=== PATIENT | female | born 1950 | race Caucasian/White ===

== ENCOUNTER 2021-04-12 08:03 | Day surgery (SDC) | payer OTHER ==
[2021-04-05 16:22] LABS: BASOPHILS # (AUTO) 0.1 X10'3 (0-0.2); BASOPHILS % (AUTO) 0.8 % (0-1); EOSINOPHILS # (AUTO) 0.2 X10'3 (0-0.9); EOSINOPHILS % (AUTO) 3.2 % (0-6); LYMPHOCYTES # (AUTO) 1.7 X10'3 (1.1-4.8); LYMPHOCYTES % (AUTO) 25.2 % (21-51); MEAN CORPUSCULAR HEMOGLOBIN 29.5 PG (27.0-31.0); MEAN CORPUSCULAR HGB CONC 33.8 g/dL (33.0-36.5); MEAN CORPUSCULAR VOLUME 87.3 FL (78-98); MEAN PLATELET VOLUME 7.7 FL (7.4-10.4); MONOCYTES # (AUTO) 0.4 X10'3 (0-0.9); MONOCYTES % (AUTO) 5.5 % (2-12); NEUTROPHILS # (AUTO) 4.5 X10'3 (1.8-7.7); NEUTROPHILS % (AUTO) 65.3 % (42-75); PRE OP HEMATOCRIT 38.7 % (35.0-45.0); PRE OP HEMOGLOBIN 13.1 g/dL (12.0-16.0); PRE OP PLATELET COUNT 223 X10'3 (140-440); RED BLOOD COUNT 4.43 X10'6 (4.20-5.60); RED CELL DISTRIBUTION WIDTH 13.6 % (11.5-14.5)
[2021-04-05 16:34] LABS: ALBUMIN 3.8 G/DL (3.4-5.0); ALKALINE PHOSPHATASE 116 IU/L (46-116); BLOOD UREA NITROGEN 19 MG/DL (7-18); BUN/CREATININE RATIO 19.2 (6.6-38.0); CALCIUM 8.6 MG/DL (8.5-10.1); CHLORIDE 105 MMOL/L (99-107); CREATININE 0.99 MG/DL (0.40-0.90); PRE OP ALT 21 U/L (30-65); PRE OP ANION GAP 10 (8-16); PRE OP AST 15 U/L (10-37); PRE OP BILIRUB, TOTAL 0.5 MG/DL (0.0-1.0); PRE OP GLUCOSE 115 MG/DL (70-104); PRE OP POTASSIUM 4.1 MMOL/L (3.4-5.1); PRE OP SODIUM 143 MMOL/L (135-145); TOTAL CARBON DIOXIDE 27.9 MMOL/L (24-32); TOTAL PROTEIN 7.5 G/DL (6.4-8.2); eGFR 56 ML/MIN
[~2021-04-12] VITALS: Ht 162.6 cm; Wt 120.1 kg
[~2021-04-12 08:03] MED LIST: ALBU8.5H17 INH; ATOR40TA PO; BUDE10.7 INH; BUPIVAcaine/PF 2.5 mg/ml (0.25%) 30ml vial ONE; CLINDAMYCIN/D5W 900mg/50ml 50 ML IV ONE; DICL20GE TOP; DULO-31 PO; LEVO150T8 PO; LIDOcaine 1% 30ml preserv. free vial ONE; OXYC10TA57 PO; PANT-47 PO; TIZA4TAB11 PO; albuterol 2.5 MG/3 ML nebule NEB ONE; famotidine 20mg tablet PO ONE; ringers solution, lacted 1,000 ML IV SCH
[2021-04-12 09:00] VITALS: BP 121/86
[2021-04-12] MEDS ORDERED: MIDAZolam 1 MG/ML 5ML VIAL ONE (10:53)
[2021-04-12] MEDS ORDERED: fentaNYL/PF 50MCG/1 ML 2ML syringe ONE (10:53)
[2021-04-12] MEDS ORDERED: ketorolac trometh. 30mg/ml inj. ONE (11:38)
[2021-04-12 11:46] VITALS: BP 124/83
--- NOTE | 2021-04-12 11:46 | NUR ---
Received from OR via , accompanied by Anesthesiologist DR PATTERSON and report given by Anesthesiolgist. AWAKENS TO VOICE. VITALS STABLE. SPLINT DI. MICHELLE PAIN. FINGERS WARM AND PINK.
[2021-04-12 11:56] VITALS: BP 128/82
[2021-04-12 12:06] VITALS: BP 126/83
[2021-04-12 12:16] VITALS: BP 130/80
--- NOTE | 2021-04-12 12:36 | NUR ---
AWAKE AND ORIENTED. VITALS STABLE. SPLINT DI. MICHELLE PAIN. HOME WITH HER SON AT THIS TIME.
== END 2021-04-12 12:36 | disposition home or self-care (01) ==
LOC: PAS 08:03
PROVIDERS: ATTEND Orthopaedic Surgery Hand Surgery
DX: T85.848A Pain due to other internal prosthetic devices, implants and grafts, initial encounter (principal); M18.12 Unilateral primary osteoarthritis of first carpometacarpal joint, left hand; M19.012 Primary osteoarthritis, left shoulder; M19.011 Primary osteoarthritis, right shoulder; M17.0 Bilateral primary osteoarthritis of knee; J45.909 Unspecified asthma, uncomplicated; G89.29 Other chronic pain; E78.5 Hyperlipidemia, unspecified; K21.9 Gastro-esophageal reflux disease without esophagitis; F41.9 Anxiety disorder, unspecified; F32.9 Major depressive disorder, single episode, unspecified; E05.00 Thyrotoxicosis with diffuse goiter without thyrotoxic crisis or storm; E66.9 Obesity, unspecified; Z68.42 Body mass index [BMI] 45.0-49.9, adult; Z98.890 Other specified postprocedural states; Z88.5 Allergy status to narcotic agent; Z88.0 Allergy status to penicillin; Z90.49 Acquired absence of other specified parts of digestive tract; Z87.891 Personal history of nicotine dependence; Z20.822 Contact with and (suspected) exposure to COVID-19; Z86.718 Personal history of other venous thrombosis and embolism; Z79.899 Other long term (current) drug therapy; Y83.8 Other surgical procedures as the cause of abnormal reaction of the patient, or of later complication, without mention of misadventure at the time of the procedure; Y92.89 Other specified places as the place of occurrence of the external cause
CPT/HCPCS: 25445; 26320; 36415; 80053; 82948; 85025; 93005; C1762; J1885; J2001; J2250; J3010; J3490; J7120; U0003; U0005; Z7506; Z7508; Z7512; A4215; A4618; A7000

== ENCOUNTER 2022-06-19 18:10 | Inpatient (IN) | payer BC, MEDICARE ==
[~2022-06-19] VITALS: Ht 162.6 cm; Wt 110.4 kg
[~2022-06-19 18:10] MED LIST changes: -BUPIVAcaine/PF 2.5 mg/ml (0.25%) 30ml vial ONE; -CLINDAMYCIN/D5W 900mg/50ml 50 ML IV ONE; -LIDOcaine 1% 30ml preserv. free vial ONE; -albuterol 2.5 MG/3 ML nebule NEB ONE; -famotidine 20mg tablet PO ONE; -ringers solution, lacted 1,000 ML IV SCH
[2022-06-19 18:30] LABS: BASOPHILS # (AUTO) 0.1 X10'3 (0-0.2); BASOPHILS % (AUTO) 0.3 % (0-1); EOSINOPHILS % (AUTO) 0 % (0-6); HEMATOCRIT 37.3 % (35.0-45.0); HEMOGLOBIN 12.4 g/dl (12.0-16.0); LYMPHOCYTES # (AUTO) 1.3 X10'3 (1.1-4.8); MEAN CORPUSCULAR HEMOGLOBIN 28.2 PG (27.0-31.0); MEAN CORPUSCULAR HGB CONC 33.1 g/dL (33.0-36.5); MEAN PLATELET VOLUME 8.4 FL (7.4-10.4); MONOCYTES # (AUTO) 1.6 X10'3 (0-0.9); MONOCYTES % (AUTO) 7.3 % (2-12); NEUTROPHILS # (AUTO) 18.4 X10'3 (1.8-7.7); NEUTROPHILS % (AUTO) 86.4 % (42-75); PLATELET COUNT 424 X10'3 (140-440); WHITE BLOOD COUNT 21.4 X10'3 (4.5-11.0)
[2022-06-19 18:59] LABS: ALANINE AMINOTRANSFERASE 30 U/L (12-78); ALBUMIN 2.6 G/DL (3.4-5.0); ALBUMIN/GLOBULIN RATIO 0.5 (1.1-1.5); ALKALINE PHOSPHATASE 103 IU/L (46-116); ANION GAP 13 (8-16); ASPARTATE AMINO TRANSFERASE 56 U/L (10-37); BILIRUBIN,TOTAL 0.6 MG/DL (0.1-1.0); BLOOD UREA NITROGEN 18 MG/DL (7-18); BUN/CREATININE RATIO 13.2 (6.6-38.0); CHLORIDE 92 MMOL/L (99-107); CREATININE 1.36 MG/DL (0.40-0.90); GLUCOSE 138 MG/DL (70-104); MAGNESIUM 1.6 MG/DL (1.5-2.4); POTASSIUM 3.3 MMOL/L (3.5-5.1); SODIUM 132 MMOL/L (135-145); TOTAL CARBON DIOXIDE 27.3 MMOL/L (24-32); eGFR 38 ML/MIN
[2022-06-19] MEDS ORDERED: SULF1TAB48 PO (20:31)
[2022-06-19] MEDS ORDERED: diltiazem 5mg/ml 5ml inj. IV ONE ×2 (20:50→21:05)
[2022-06-19] MEDS ORDERED: temazepam 15mg capsule PO PRN (21:00)
[2022-06-19] MEDS ORDERED: ondansetron/PF 4mg/2ml inj IV ONE (21:15)
[2022-06-19] MEDS ORDERED: CefTRIAXone/D5W-Rocephin 1gm 50 ML IV ONE (21:35)
[2022-06-19] MEDS ORDERED: vancomycin/NS 1 GM ADD-VANTAGE 250 ML IV ONE (21:35)
[2022-06-19] MEDS ORDERED: azithromycin/NS 500mg/250ml 250 ML IV ONE (22:20)
[2022-06-19] MEDS ORDERED: bisacodyl 10mg suppository rectal RC PRN (22:55)
[2022-06-19] MEDS ORDERED: acetaminophen 650mg rectal suppository RC PRN (22:55)
[2022-06-19] MEDS ORDERED: diphenhydrAMINE 25mg capsule PO PRN (22:55)
[2022-06-19] MEDS ORDERED: acetaminophen 325mg tablet PO PRN ×2 (22:55)
[2022-06-19] MEDS ORDERED: diphenhydrAMINE 50 mg/ml inj IV PRN (22:55)
[2022-06-19] MEDS ORDERED: ondansetron/PF 4mg/2ml inj IV PRN (22:55)
[2022-06-19] MEDS ORDERED: mag hydrox/Alum hydrox/simeth 30ml oral suspension PO PRN (22:55)
[2022-06-19 22:59] LABS: CLARITY,URINE CLOUDY (Clear); COLOR,URINE AMBER (Yellow); GLUCOSE, URINE 100 mg/dl (Neg); KETONES,URINE 15 mg/dl (Neg); LEUKOCYTE ESTERASE ,URINE NEGATIVE (Neg); OCCULT BLOOD,URINE TRACE-INTACT (Neg); PROTEIN,URINE 100 mg/dl (Neg)
[2022-06-19 23:01] LABS: UA COLLECTION TYPE CLN CATCH MIDSTREAM
[2022-06-19 23:02] LABS: NITRITES, URINE NEGATIVE (Neg)
[2022-06-19] MEDS: diltiazem-NS 100mg/100ml 100 ML IV SCH (23:02)
[2022-06-19] MEDS: normal saline 1000ml 1,000 ML IV SCH (23:02)
[2022-06-19 23:09] LABS: BACTERIA,URINE 2+ /HPF (Neg); MUCUS STRANDS FEW /LPF (Neg); SQUAMOUS EPITHELIAL CELL,UR MODERATE /LPF (FEW); TRANSITIONAL EPI CELLS,URINE FEW /HPF
[2022-06-19 23:10] LABS: COARSE GRANULAR CAST 0-3 /LPF (NEGATIVE)
[2022-06-19] MEDS ORDERED: magnesium Cl slow-release 64mg tablet PO PRN (23:10)
[2022-06-19] MEDS ORDERED: potassium Cl 20 mEq SR tablet PO PRN (23:10)
[2022-06-19] MEDS ORDERED: potassium Cl 40MEQ/1/2NS 520ml 520 ML IV PRN (23:10)
[2022-06-19] MEDS ORDERED: magnesium 4gm in 100ml NS 100 ML IV PRN (23:10)
[2022-06-19 23:26] LABS: MAGNESIUM 1.7 MG/DL (1.5-2.4); PHOSPHORUS 2.8 MG/DL (2.3-4.5)
[2022-06-19 23:28] LABS: HEMOGLOBIN A1C 5.7 % (4.5-6.2)
[2022-06-20 00:12] LABS: D-DIMER 1.02 MG/L FEU (0-0.50)
[2022-06-20 00:24] LABS: APTT 35 SECONDS (22-32)
[2022-06-20] MEDS: heparin, porcine 5000 units/ml vial SQ SCH ×3 (01:05→18:21)
[2022-06-20] MEDS: oxyCODONE/APAP 5-325mg tablet PO PRN ×2 (01:05→05:47)
[2022-06-20] MEDS: diltiazem-NS 100mg/100ml 100 ML IV SCH ×2 (06:00→16:26)
--- NOTE | 2022-06-20 07:00 | NUR ---
Patient in room ED 11. I have received report from Sukhwinder MASON and had the opportunity to ask questions and assume patient care.
[2022-06-20 07:55] LABS: BASOPHILS # (AUTO) 0.1 X10'3 (0-0.2); BASOPHILS % (AUTO) 0.3 % (0-1); EOSINOPHILS % (AUTO) 0.1 % (0-6); HEMATOCRIT 32.4 % (35.0-45.0); HEMOGLOBIN 10.5 g/dl (12.0-16.0); LYMPHOCYTES # (AUTO) 1.3 X10'3 (1.1-4.8); LYMPHOCYTES % (AUTO) 7.2 % (21-51); MEAN CORPUSCULAR HEMOGLOBIN 27.9 PG (27.0-31.0); MEAN CORPUSCULAR HGB CONC 32.5 g/dL (33.0-36.5); MEAN CORPUSCULAR VOLUME 85.9 FL (78-98); MEAN PLATELET VOLUME 8.9 FL (7.4-10.4); MONOCYTES # (AUTO) 1.4 X10'3 (0-0.9); MONOCYTES % (AUTO) 7.5 % (2-12); NEUTROPHILS # (AUTO) 15.6 X10'3 (1.8-7.7); NEUTROPHILS % (AUTO) 84.9 % (42-75); PLATELET COUNT 335 X10'3 (140-440); RED BLOOD COUNT 3.77 X10'6 (4.20-5.60); WHITE BLOOD COUNT 18.4 X10'3 (4.5-11.0)
[2022-06-20 08:00] VITALS: BP 113/40
[2022-06-20] MEDS: K and/or MAG REPLACEMENT MC SCH ×2 (08:00→20:00)
[2022-06-20] MEDS ORDERED: levoFLOXACIN-Levaquin 750MG/D5 150 ML IV SCH (08:00)
--- NOTE | 2022-06-20 08:04 | NUR ---
Paged echo do perform procedure for the patient.
[2022-06-20 08:53] LABS: ALANINE AMINOTRANSFERASE 25 U/L (12-78); ALBUMIN 2.2 G/DL (3.4-5.0); ALBUMIN/GLOBULIN RATIO 0.5 (1.1-1.5); ALKALINE PHOSPHATASE 99 IU/L (46-116); ANION GAP 10 (8-16); ASPARTATE AMINO TRANSFERASE 54 U/L (10-37); BILIRUBIN,TOTAL 0.6 MG/DL (0.1-1.0); BLOOD UREA NITROGEN 24 MG/DL (7-18); BUN/CREATININE RATIO 14.3 (6.6-38.0); CALCIUM 7.9 MG/DL (8.5-10.1); CHLORIDE 94 MMOL/L (99-107); CHOL/HDL RATIO 6.4 (0.00-4.99); CHOLESTEROL 77 MG/DL (0-200); CREATININE 1.68 MG/DL (0.40-0.90); GLUCOSE 108 MG/DL (70-104); HDL CHOLESTEROL 12 MG/DL (35-60); LDL CHOLESTEROL 36 MG/DL (50-100); MAGNESIUM 1.7 MG/DL (1.5-2.4); POTASSIUM 3.3 MMOL/L (3.5-5.1); SODIUM 132 MMOL/L (135-145); TOTAL CARBON DIOXIDE 28.2 MMOL/L (24-32); TOTAL PROTEIN 6.9 G/DL (6.4-8.2); TRIGLYCERIDES 86 MG/DL (20-135); eGFR 30 ML/MIN
[2022-06-20] MEDS: docusate sod 100mg capsule PO SCH ×2 (09:26→20:00)
[2022-06-20] MEDS: pantoprazole 40mg Tablet.DR PO SCH (09:26)
[2022-06-20] MEDS: normal saline 1000ml 1,000 ML IV SCH ×2 (09:28→21:58)
[2022-06-20 11:15] VITALS: BP 104/44
[2022-06-20] MEDS: potassium Cl 20 mEq SR tablet PO PRN ×3 (12:27→22:01)
[2022-06-20] MEDS ORDERED: OXYC1TAB15 PO (14:37)
[2022-06-20] MEDS ORDERED: DICL100G30 TOP (14:37)
[2022-06-20] MEDS ORDERED: PANT40TA54 PO (14:37)
[2022-06-20] MEDS ORDERED: ATOR10TA70 PO (14:37)
[2022-06-20] MEDS ORDERED: PREG150C46 PO (14:37)
[2022-06-20] MEDS ORDERED: DULO60CA65 PO (14:37)
[2022-06-20] MEDS ORDERED: LEVO150T61 PO (14:37)
[2022-06-20] MEDS ORDERED: TIZA2CAP7 PO (14:39)
--- NOTE | 2022-06-20 15:54 | NUR ---
Ana Cristina [id number], Pt is having generalized pain she rates at a 7/10. She has no pain meds in the EMar. Is there a med you would like ordered for her? Bernard [phone]
[2022-06-20 16:01] VITALS: BP 98/51
--- NOTE | 2022-06-20 16:01 | NUR ---
PAGER ID: [phone] MESSAGE: Ana Cristina [id number], Pt is having generalized pain she rates at a 7/10. She has no pain meds in the EMar. Is there a med you would like ordered for her? Sorry if repeat message, not sure if it was sent correctly. Bernard [phone]
[2022-06-20] MEDS ORDERED: pantoprazole 40mg Tablet.DR PO PRN (16:15)
[2022-06-20] MEDS ORDERED: OXYCODONE HCL PO PRN (16:15)
[2022-06-20] MEDS ORDERED: ACETAMINOPHEN PO PRN (16:15)
[2022-06-20] MEDS: HYDROcodone/acetaminophen 5mg/325mg tablet PO PRN ×2 (16:24→22:00)
[2022-06-20] MEDS ORDERED: tizanidine 4mg tablet PO PRN (16:30)
[2022-06-20] MEDS: ipratropium/albuterol 3ml nebule NEB PRN (16:36)
[2022-06-20 18:00] VITALS: BP 128/58
--- NOTE | 2022-06-20 19:27 | NUR ---
Patient in room PCU 3017. I have received report from Bernard MASON and had the opportunity to ask questions and assume patient care.
[2022-06-20] MEDS: pregabalin 75mg capsule PO SCH (20:00)
--- NOTE | 2022-06-20 21:22 | NUR ---
Pt did not want to do flutter nor I.S. at this time. Pt states she will continue use tomorrow morning. Breath sounds are not indicative of a PRN breathing tx at this time, however flutter and I.S would benefit breath sounds. RT will continue to monitor pt.
[2022-06-20] MEDS: duloxetine 30mg CAPSULE.DR PO SCH (21:49)
[2022-06-20] MEDS: atorvastatin 10mg tablet PO SCH (21:50)
[2022-06-21] VITALS (14 sets, daily range): BP systolic 99–146; BP diastolic 33–82
[2022-06-21] MEDS: diltiazem-NS 100mg/100ml 100 ML IV SCH (03:54)
[2022-06-21] MEDS: normal saline 1000ml 1,000 ML IV SCH ×2 (04:55→15:38)
[2022-06-21 06:29] LABS: BASOPHILS # (AUTO) 0.1 X10'3 (0-0.2); BASOPHILS % (AUTO) 0.3 % (0-1); EOSINOPHILS % (AUTO) 0 % (0-6); HEMATOCRIT 33.7 % (35.0-45.0); HEMOGLOBIN 10.9 g/dl (12.0-16.0); LYMPHOCYTES # (AUTO) 1.4 X10'3 (1.1-4.8); LYMPHOCYTES % (AUTO) 7.3 % (21-51); MEAN CORPUSCULAR HEMOGLOBIN 28.1 PG (27.0-31.0); MEAN CORPUSCULAR HGB CONC 32.5 g/dL (33.0-36.5); MEAN CORPUSCULAR VOLUME 86.5 FL (78-98); MEAN PLATELET VOLUME 9.1 FL (7.4-10.4); MONOCYTES # (AUTO) 1.8 X10'3 (0-0.9); MONOCYTES % (AUTO) 9.7 % (2-12); NEUTROPHILS # (AUTO) 15.4 X10'3 (1.8-7.7); NEUTROPHILS % (AUTO) 82.7 % (42-75); PLATELET COUNT 325 X10'3 (140-440); RED BLOOD COUNT 3.89 X10'6 (4.20-5.60); RED CELL DISTRIBUTION WIDTH 16.3 % (11.5-14.5); WHITE BLOOD COUNT 18.7 X10'3 (4.5-11.0)
[2022-06-21 07:07] LABS: ALANINE AMINOTRANSFERASE 26 U/L (12-78); ALBUMIN 2.1 G/DL (3.4-5.0); ALBUMIN/GLOBULIN RATIO 0.4 (1.1-1.5); ALKALINE PHOSPHATASE 104 IU/L (46-116); ANION GAP 8 (8-16); ASPARTATE AMINO TRANSFERASE 53 U/L (10-37); BILIRUBIN,TOTAL 0.5 MG/DL (0.1-1.0); BLOOD UREA NITROGEN 21 MG/DL (7-18); BUN/CREATININE RATIO 15.7 (6.6-38.0); CALCIUM 8.4 MG/DL (8.5-10.1); CHLORIDE 95 MMOL/L (99-107); CREATININE 1.34 MG/DL (0.40-0.90); GLUCOSE 117 MG/DL (70-104); MAGNESIUM 1.7 MG/DL (1.5-2.4); POTASSIUM 3.9 MMOL/L (3.5-5.1); SODIUM 132 MMOL/L (135-145); TOTAL CARBON DIOXIDE 29.5 MMOL/L (24-32); TOTAL PROTEIN 7.4 G/DL (6.4-8.2); eGFR 39 ML/MIN
[2022-06-21] MEDS: K and/or MAG REPLACEMENT MC SCH (08:00)
[2022-06-21] MEDS: heparin, porcine 5000 units/ml vial SQ SCH ×4 (09:13→23:32)
[2022-06-21] MEDS: docusate sod 100mg capsule PO SCH ×2 (09:13→23:33)
[2022-06-21] MEDS: levoTHYROXINE 75mcg tablet PO SCH (09:14)
[2022-06-21] MEDS: pantoprazole 40mg Tablet.DR PO SCH (09:14)
[2022-06-21] MEDS: pregabalin 75mg capsule PO SCH ×2 (09:15→23:27)
--- NOTE | 2022-06-21 11:25 | NUR ---
PAGER ID: [phone] MESSAGE: Ana Cristina [id number], With her new order of Cardizem PO do you want me to DC her Cardizem drip now or at a certain time? Bernard [id number]
--- NOTE | 2022-06-21 11:48 | NUR ---
PAGER ID: [phone] MESSAGE: Ana Cristina [id number], Pt's Cardizem drip will run out before PO is set to administer. Would you like me to administer the PO Cardizem early or wait until 1400? Bernard [id number]
[2022-06-21] MEDS: diltiazem 30mg tablet PO SCH ×2 (12:26→23:28)
[2022-06-21] MEDS: ipratropium/albuterol 3ml nebule NEB PRN (14:49)
[2022-06-21] MEDS ORDERED: azithromycin 250mg tablet PO ONE (18:00)
[2022-06-21] MEDS ORDERED: VANCOmycin 2,000MG in NS 500ml IV soln IV ONE (18:25)
[2022-06-21] MEDS ORDERED: vancomycin 1,750 MG in NS 350ml IV soln IV ONE (19:00)
[2022-06-21] MEDS: cefTAZidime inj. 1 GM in normal saline 100ml IV soln 100 ML IV SCH (20:43)
[2022-06-21] MEDS: duloxetine 30mg CAPSULE.DR PO SCH (23:29)
[2022-06-21] MEDS: HYDROcodone/acetaminophen 10/325mg tab PO PRN (23:30)
[2022-06-21] MEDS: atorvastatin 10mg tablet PO SCH (23:33)
[2022-06-22] VITALS (8 sets, daily range): BP systolic 98–146; BP diastolic 60–86
--- NOTE | 2022-06-22 00:17 | NUR ---
AGER ID: [phone] MESSAGE: Dr. Hansen patient in [id number] , Kamila De La Paz has gone back into afib with RVR heart rates 130-150's. She had her Cardizem drip discontinued on day shift and started on po Cardizem she has received 2 doses so far no prn orderd. [id number] Isabel (236 character message out of a maximum of 240)
[2022-06-22] MEDS ORDERED: diltiazem-NS 100mg/100ml 100 ML IV SCH (00:25)
[2022-06-22] MEDS ORDERED: diltiazem-D5W 125mg/125ml 125 ML IV SCH (00:25)
[2022-06-22] MEDS: normal saline 1000ml 1,000 ML IV SCH ×2 (00:55→07:52)
[2022-06-22 07:06] LABS: BASOPHILS # (AUTO) 0.1 X10'3 (0-0.2); BASOPHILS % (AUTO) 0.3 % (0-1); EOSINOPHILS # (AUTO) 0.1 X10'3 (0-0.9); EOSINOPHILS % (AUTO) 0.3 % (0-6); HEMATOCRIT 30.8 % (35.0-45.0); HEMOGLOBIN 10.1 g/dl (12.0-16.0); LYMPHOCYTES # (AUTO) 1.3 X10'3 (1.1-4.8); LYMPHOCYTES % (AUTO) 7.6 % (21-51); MEAN CORPUSCULAR HEMOGLOBIN 28.2 PG (27.0-31.0); MEAN CORPUSCULAR HGB CONC 32.7 g/dL (33.0-36.5); MEAN CORPUSCULAR VOLUME 86.1 FL (78-98); MEAN PLATELET VOLUME 9.2 FL (7.4-10.4); MONOCYTES # (AUTO) 1.2 X10'3 (0-0.9); MONOCYTES % (AUTO) 7.1 % (2-12); NEUTROPHILS # (AUTO) 14.7 X10'3 (1.8-7.7); NEUTROPHILS % (AUTO) 84.7 % (42-75); PLATELET COUNT 350 X10'3 (140-440); RED BLOOD COUNT 3.57 X10'6 (4.20-5.60); RED CELL DISTRIBUTION WIDTH 16.4 % (11.5-14.5); WHITE BLOOD COUNT 17.3 X10'3 (4.5-11.0)
[2022-06-22 07:14] LABS: ALANINE AMINOTRANSFERASE 27 U/L (12-78); ALBUMIN 1.9 G/DL (3.4-5.0); ALBUMIN/GLOBULIN RATIO 0.4 (1.1-1.5); ALKALINE PHOSPHATASE 100 IU/L (46-116); ANION GAP 9 (8-16); ASPARTATE AMINO TRANSFERASE 48 U/L (10-37); BILIRUBIN,TOTAL 0.4 MG/DL (0.1-1.0); BLOOD UREA NITROGEN 16 MG/DL (7-18); BUN/CREATININE RATIO 16.5 (6.6-38.0); CALCIUM 8.3 MG/DL (8.5-10.1); CHLORIDE 98 MMOL/L (99-107); CREATININE 0.97 MG/DL (0.40-0.90); GLUCOSE 128 MG/DL (70-104); MAGNESIUM 1.7 MG/DL (1.5-2.4); POTASSIUM 3.9 MMOL/L (3.5-5.1); SODIUM 132 MMOL/L (135-145); TOTAL CARBON DIOXIDE 24.6 MMOL/L (24-32); TOTAL PROTEIN 6.8 G/DL (6.4-8.2); eGFR 57 ML/MIN
[2022-06-22] MEDS: azithromycin 250mg tablet PO SCH (07:51)
[2022-06-22] MEDS: cefTAZidime inj. 1 GM in normal saline 100ml IV soln 100 ML IV SCH ×2 (07:51→20:00)
[2022-06-22] MEDS: docusate sod 100mg capsule PO SCH ×2 (07:51→20:19)
[2022-06-22] MEDS: levoTHYROXINE 75mcg tablet PO SCH (07:51)
[2022-06-22] MEDS: pantoprazole 40mg Tablet.DR PO SCH (07:51)
[2022-06-22] MEDS: pregabalin 75mg capsule PO SCH ×2 (07:52→20:16)
[2022-06-22] MEDS: heparin, porcine 5000 units/ml vial SQ SCH ×2 (07:52→16:22)
[2022-06-22] MEDS ORDERED: levoFLOXACIN-Levaquin 750MG/D5 150 ML IV SCH (08:00)
[2022-06-22] MEDS: K and/or MAG REPLACEMENT MC SCH ×2 (08:00→19:44)
[2022-06-22] MEDS ORDERED: iohexol 350MG/ML 100ml bottle IV ONE (10:32)
--- NOTE | 2022-06-22 12:00 | NUR ---
Rn spoke to Dr Ovalle about pt dilt gtt. RN informed provider that she is not in a fib/flutter and has not been all night. RN requested provider assess pt and evaluate need for gtt.
[2022-06-22] MEDS ORDERED: furosemide 40mg/4ml inj IV ONE (12:50)
[2022-06-22] MEDS: diltiazem 30mg tablet PO SCH ×2 (13:10→20:16)
--- NOTE | 2022-06-22 15:57 | NUR ---
rn notified provider. pt in a fib rvr approximately 2 min, pt back in sinus w/ pacs.
[2022-06-22] MEDS: HYDROcodone/acetaminophen 10/325mg tab PO PRN (16:29)
[2022-06-22] MEDS: furosemide 40mg/4ml inj IV SCH (20:19)
[2022-06-22] MEDS: ipratropium/albuterol 3ml nebule NEB PRN (20:51)
[2022-06-22] MEDS: atorvastatin 10mg tablet PO SCH (21:00)
[2022-06-22] MEDS ORDERED: vancomycin/NS 1 GM ADD-VANTAGE 250 ML IV SCH (21:00)
[2022-06-22] MEDS: duloxetine 30mg CAPSULE.DR PO SCH (21:00)
[2022-06-22] MEDS: diltiazem-NS 100mg/100ml 100 ML IV SCH (23:13)
[2022-06-23] VITALS (22 sets, daily range): BP systolic 86–163; BP diastolic 48–102
[2022-06-23] MEDS: ipratropium/albuterol 3ml nebule NEB PRN (00:13)
[2022-06-23] MEDS: heparin, porcine 5000 units/ml vial SQ SCH ×3 (00:21→15:38)
[2022-06-23] MEDS: HYDROcodone/acetaminophen 10/325mg tab PO PRN ×3 (04:40→15:38)
[2022-06-23] MEDS ORDERED: furosemide 20 MG/2 ML vial IV ONE (05:40)
--- NOTE | 2022-06-23 06:30 | NUR ---
Received report from Tawanna and [facility]. Pt is sitting up in chair. She is on 5L NC and does not want to lay in bed at this time. Call light within reach. Will continue to monitor.
[2022-06-23 06:58] LABS: BASOPHILS # (AUTO) 0.1 X10'3 (0-0.2); EOSINOPHILS % (AUTO) 0.3 % (0-6); HEMOGLOBIN 11.1 g/dl (12.0-16.0); LYMPHOCYTES # (AUTO) 1.1 X10'3 (1.1-4.8)
[2022-06-23 07:00] LABS: BASOPHILS % (AUTO) 0.4 % (0-1); HEMATOCRIT 34.2 % (35.0-45.0); LYMPHOCYTES % (AUTO) 6.8 % (21-51); MEAN CORPUSCULAR HEMOGLOBIN 27.9 PG (27.0-31.0); MEAN CORPUSCULAR HGB CONC 32.6 g/dL (33.0-36.5); MEAN CORPUSCULAR VOLUME 85.7 FL (78-98); MEAN PLATELET VOLUME 9.2 FL (7.4-10.4); MONOCYTES # (AUTO) 0.9 X10'3 (0-0.9); MONOCYTES % (AUTO) 5.9 % (2-12); NEUTROPHILS # (AUTO) 13.5 X10'3 (1.8-7.7); NEUTROPHILS % (AUTO) 86.6 % (42-75); PLATELET COUNT 441 X10'3 (140-440); RED BLOOD COUNT 3.99 X10'6 (4.20-5.60); RED CELL DISTRIBUTION WIDTH 16.7 % (11.5-14.5); WHITE BLOOD COUNT 15.6 X10'3 (4.5-11.0)
[2022-06-23 07:26] LABS: ALANINE AMINOTRANSFERASE 23 U/L (12-78); ALBUMIN 1.9 G/DL (3.4-5.0); ALBUMIN/GLOBULIN RATIO 0.3 (1.1-1.5); ALKALINE PHOSPHATASE 114 IU/L (46-116); ANION GAP 8 (8-16); ASPARTATE AMINO TRANSFERASE 40 U/L (10-37); BILIRUBIN,TOTAL 0.4 MG/DL (0.1-1.0); BLOOD UREA NITROGEN 13 MG/DL (7-18); BUN/CREATININE RATIO 12.3 (6.6-38.0); CALCIUM 8.3 MG/DL (8.5-10.1); CHLORIDE 95 MMOL/L (99-107); CREATININE 1.06 MG/DL (0.40-0.90); GLUCOSE 122 MG/DL (70-104); MAGNESIUM 1.4 MG/DL (1.5-2.4); POTASSIUM 3.4 MMOL/L (3.5-5.1); SODIUM 135 MMOL/L (135-145); TOTAL CARBON DIOXIDE 32.1 MMOL/L (24-32); TOTAL PROTEIN 7.4 G/DL (6.4-8.2); eGFR 51 ML/MIN
[2022-06-23 07:54] LABS: TOTAL CELLS COUNTED 100
[2022-06-23 07:55] LABS: PLATELET ESTIMATE NORMAL
[2022-06-23] MEDS: K and/or MAG REPLACEMENT MC SCH ×2 (08:00→21:00)
[2022-06-23] MEDS: cefTAZidime inj. 1 GM in normal saline 100ml IV soln 100 ML IV SCH ×2 (08:41→21:21)
[2022-06-23] MEDS: azithromycin 250mg tablet PO SCH (08:42)
[2022-06-23] MEDS: pregabalin 75mg capsule PO SCH ×2 (08:42→21:15)
[2022-06-23] MEDS: pantoprazole 40mg Tablet.DR PO SCH (08:42)
[2022-06-23] MEDS: docusate sod 100mg capsule PO SCH ×2 (08:42→21:00)
[2022-06-23] MEDS: levoTHYROXINE 75mcg tablet PO SCH (08:42)
[2022-06-23] MEDS: furosemide 40mg/4ml inj IV SCH ×2 (08:43→21:00)
[2022-06-23] MEDS ORDERED: potassium Cl 40MEQ/1/2NS 520ml 520 ML IV PRN (09:50)
[2022-06-23] MEDS ORDERED: potassium Cl 20 mEq SR tablet PO PRN (09:50)
[2022-06-23] MEDS ORDERED: magnesium 4gm in 100ml NS 100 ML IV PRN (09:50)
[2022-06-23] MEDS ORDERED: normal saline 1,000 ML IV SCH (09:55)
[2022-06-23] MEDS ORDERED: diphenhydrAMINE 25mg capsule PO PRN (09:55)
[2022-06-23] MEDS: guaiFENesin ER 600mg tablet PO SCH ×2 (10:13→21:16)
[2022-06-23] MEDS: magnesium Cl slow-release 64mg tablet PO PRN ×2 (10:13→21:14)
[2022-06-23] MEDS: potassium Cl 20 mEq SR tablet PO PRN ×3 (10:13→21:22)
--- NOTE | 2022-06-23 11:51 | NUR ---
MICRO RESULT TAKEN FROM LAB, REPORTED TO PRIMARY RN.
--- NOTE | 2022-06-23 11:54 | NUR ---
Paged PAGER ID: [phone] MESSAGE: [id number]. Ana Cristina. + MRSA cultures in the wound. Will put on isolation. Sharon Parsons [phone]
[2022-06-23] MEDS: diltiazem-NS 100mg/100ml 100 ML IV SCH ×2 (12:35→21:18)
--- NOTE | 2022-06-23 14:01 | NUR ---
PRESSURE ULCER EDUCATION: DEFINITION: A pressure ulcer is an area of skin that breaks down when you stay in one position too long. The constant pressure against the skin reduces the blood flow to that area and the affected tissue dies. CAUSES: "Being bedridden or in a wheelchair "Fragile skin "Having a chronic condition, such as diabetes or vascular disease "Inability to move certain parts of your body without assistance "Older age "Incontinence of urine or stool SYMPTOMS: "A reddened area that DOES NOT turn white when pressed on - this can be the beginning of a pressure ulcer "A blister, deep sore or a crater - these can be advanced pressure ulcers FIRST AID: "Relieve the pressure on this area "Keep the area clean and dry "Call your primary doctor if you see any of the above symptoms "DO NOT massage the area "DO NOT use a donut shaped or ring shaped pillow- these actually interfere with the blood flow and cause complications PREVENTION: "Check for pressure ulcers everyday "Change position at least every two hours to relieve pressure "Use items that help relieve pressure- pillows, sheepskin, foam padding, and powders. "Keep skin clean and dry "Eat healthy well balanced meals "Exercise daily IF YOU SEE ANY OF THESE SYMPTOMS WHILE IN THE HOSPITAL - TELL YOUR NURSE IMMEDIATELY. IF YOU SEE ANY OF THESE SYMPTOMS WHILE AT HOME OR HAVE ANY QUESTIONS OR CONCERNS ABOUT PRESSURE ULCERS - CALL YOUR PRIMARY DOCTOR IMMEDIATELY. Addendum: 06/23/22 at 1401 by Sveta Reece LVN Amended: Links added.
[2022-06-23] MEDS: vancomycin/NS 1 GM ADD-VANTAGE 250 ML IV SCH (15:40)
--- NOTE | 2022-06-23 17:56 | NUR ---
Pt has been able to reposition self throughout shift. Call light within reach.
[2022-06-23] MEDS: atorvastatin 10mg tablet PO SCH (21:15)
[2022-06-23] MEDS: duloxetine 30mg CAPSULE.DR PO SCH (21:16)
[2022-06-23] MEDS: acetylcysteine 200 MG/ml 4ml vial PO SCH (21:23)
[2022-06-24] VITALS (7 sets, daily range): BP systolic 126–138; BP diastolic 68–88
[2022-06-24] MEDS: vancomycin/NS 1 GM ADD-VANTAGE 250 ML IV SCH ×2 (02:44→14:22)
[2022-06-24] MEDS: diltiazem-NS 100mg/100ml 100 ML IV SCH (05:30)
[2022-06-24 07:21] LABS: BASOPHILS # (AUTO) 0.1 X10'3 (0-0.2); BASOPHILS % (AUTO) 0.4 % (0-1); EOSINOPHILS # (AUTO) 0.1 X10'3 (0-0.9); EOSINOPHILS % (AUTO) 0.4 % (0-6); HEMATOCRIT 33.5 % (35.0-45.0); HEMOGLOBIN 10.8 g/dl (12.0-16.0); LYMPHOCYTES % (AUTO) 7.6 % (21-51); MEAN CORPUSCULAR HEMOGLOBIN 27.4 PG (27.0-31.0); MEAN CORPUSCULAR HGB CONC 32.3 g/dL (33.0-36.5); MEAN CORPUSCULAR VOLUME 84.7 FL (78-98); MEAN PLATELET VOLUME 8.7 FL (7.4-10.4); MONOCYTES # (AUTO) 0.8 X10'3 (0-0.9); NEUTROPHILS # (AUTO) 11.8 X10'3 (1.8-7.7); NEUTROPHILS % (AUTO) 85.6 % (42-75); PLATELET COUNT 433 X10'3 (140-440); RED BLOOD COUNT 3.95 X10'6 (4.20-5.60); WHITE BLOOD COUNT 13.8 X10'3 (4.5-11.0)
[2022-06-24 07:31] LABS: ALANINE AMINOTRANSFERASE 23 U/L (12-78); ALBUMIN 1.8 G/DL (3.4-5.0); ALBUMIN/GLOBULIN RATIO 0.3 (1.1-1.5); ALKALINE PHOSPHATASE 108 IU/L (46-116); ANION GAP 7 (8-16); ASPARTATE AMINO TRANSFERASE 37 U/L (10-37); BILIRUBIN,TOTAL 0.3 MG/DL (0.1-1.0); BLOOD UREA NITROGEN 16 MG/DL (7-18); CALCIUM 8.1 MG/DL (8.5-10.1); CHLORIDE 94 MMOL/L (99-107); CREATININE 1.14 MG/DL (0.40-0.90); GLUCOSE 116 MG/DL (70-104); POTASSIUM 3.6 MMOL/L (3.5-5.1); SODIUM 135 MMOL/L (135-145); TOTAL CARBON DIOXIDE 34.5 MMOL/L (24-32); TOTAL PROTEIN 7.5 G/DL (6.4-8.2); eGFR 47 ML/MIN
[2022-06-24] MEDS: K and/or MAG REPLACEMENT MC SCH ×2 (08:00→19:25)
[2022-06-24] MEDS: azithromycin 250mg tablet PO SCH (08:04)
[2022-06-24] MEDS: pantoprazole 40mg Tablet.DR PO SCH (08:04)
[2022-06-24] MEDS: guaiFENesin ER 600mg tablet PO SCH ×2 (08:04→19:28)
[2022-06-24] MEDS: docusate sod 100mg capsule PO SCH ×2 (08:05→19:27)
[2022-06-24] MEDS: pregabalin 75mg capsule PO SCH ×2 (08:05→19:27)
[2022-06-24] MEDS: levoTHYROXINE 75mcg tablet PO SCH (08:06)
[2022-06-24] MEDS: HYDROcodone/acetaminophen 10/325mg tab PO PRN ×2 (08:07→16:17)
[2022-06-24] MEDS: magnesium hydroxide 30ml (MOM) UD suspension PO PRN (08:08)
[2022-06-24] MEDS: furosemide 40mg/4ml inj IV SCH ×2 (08:08→19:23)
[2022-06-24] MEDS: heparin, porcine 5000 units/ml vial SQ SCH ×3 (08:12→16:07)
[2022-06-24] MEDS: cefTAZidime inj. 1 GM in normal saline 100ml IV soln 100 ML IV SCH ×2 (08:22→19:23)
[2022-06-24 08:32] LABS: MAGNESIUM 1.5 MG/DL (1.5-2.4)
[2022-06-24] MEDS: acetylcysteine 200 MG/ml 4ml vial PO SCH ×2 (10:03→19:29)
[2022-06-24] MEDS: diltiazem SR 60mg capsule (twice daily) PO SCH ×2 (11:12→19:27)
--- NOTE | 2022-06-24 18:37 | NUR ---
Orientee documentation: I have reviewed and agree with all interventions, assessments performed and documented by ISABELLA Dailey.
[2022-06-24] MEDS: atorvastatin 10mg tablet PO SCH (19:27)
[2022-06-24] MEDS: duloxetine 30mg CAPSULE.DR PO SCH (19:35)
[2022-06-24] MEDS ORDERED: VANCOMYCIN LEVEL IV ONE (20:30)
[2022-06-25] MEDS: heparin, porcine 5000 units/ml vial SQ SCH ×3 (00:10→16:54)
[2022-06-25] MEDS ORDERED: VANCOMYCIN LEVEL IV ONE (01:30)
[2022-06-25 02:00] VITALS: BP 147/71
[2022-06-25] MEDS: vancomycin/NS 1 GM ADD-VANTAGE 250 ML IV SCH (02:00)
[2022-06-25] MEDS: acetylcysteine 200 MG/ml 4ml vial PO SCH ×2 (08:00→19:41)
[2022-06-25] MEDS: K and/or MAG REPLACEMENT MC SCH ×2 (08:00→20:00)
[2022-06-25] MEDS: guaiFENesin ER 600mg tablet PO SCH ×2 (08:46→19:46)
[2022-06-25] MEDS: furosemide 40mg/4ml inj IV SCH ×2 (08:46→19:47)
[2022-06-25] MEDS: cefTAZidime inj. 1 GM in normal saline 100ml IV soln 100 ML IV SCH ×2 (08:46→19:38)
[2022-06-25] MEDS: azithromycin 250mg tablet PO SCH (08:46)
[2022-06-25] MEDS: levoTHYROXINE 75mcg tablet PO SCH (08:46)
[2022-06-25] MEDS: pantoprazole 40mg Tablet.DR PO SCH (08:47)
[2022-06-25] MEDS: docusate sod 100mg capsule PO SCH ×2 (08:47→19:47)
[2022-06-25] MEDS: pregabalin 75mg capsule PO SCH ×2 (08:47→19:47)
[2022-06-25] MEDS: diltiazem SR 60mg capsule (twice daily) PO SCH ×2 (09:00→20:08)
[2022-06-25] MEDS: magnesium hydroxide 30ml (MOM) UD suspension PO PRN (09:11)
--- NOTE | 2022-06-25 09:24 | NUR ---
Initial: Pt admit DX R lower lobe PNA, CHF, TORO, abdominal wall cellulitis, and acute respiratory failure per EMR. PO fluctuates ~63% avg Na/Fluid restricted diet recent meals just shy of meeting estimated needs. Will add magic cup WL for further kcals/protein; dietary notified. LBM 06/24 receiving routine colace. Will continue to monitor. Rec: 1. continue Na-restricted/Fluid-restricted diet per MD 2. magic cup WS; encourage PO 3. routine bowel care 4. daily wts Addendum: 06/25/22 at [address] Amended: Links added.
[2022-06-25] MEDS: ipratropium/albuterol 3ml nebule NEB PRN (10:00)
--- NOTE | 2022-06-25 10:16 | NUR ---
829 -- RN requested Diltiazem PO from pharmacy. 899 -- Rn called pharmacy. Diltiazem that was brought up from pharmacy are 120mg xr capsules, not the ordered 2x 60mg capsules. The medication bag also states that it is 60 mg xr capsules. Medication unable to scan. RN verified w/ pharmacy and requested that the order then be changed to 1x 120mg XR capsules. RN administered 1x 120mg XR Diltiazem capsule. Pending updated pharm order.
[2022-06-25 11:00] VITALS: BP 160/87
[2022-06-25 15:00] VITALS: BP 137/82
[2022-06-25] MEDS: linezolid 600mg tablet PO SCH ×2 (16:54→19:44)
[2022-06-25] MEDS: HYDROcodone/acetaminophen 10/325mg tab PO PRN (18:37)
[2022-06-25] MEDS: atorvastatin 10mg tablet PO SCH (19:45)
[2022-06-25] MEDS: duloxetine 30mg CAPSULE.DR PO SCH (19:46)
[2022-06-25 22:00] VITALS: BP 112/60
[2022-06-26] MEDS: heparin, porcine 5000 units/ml vial SQ SCH ×3 (01:11→16:35)
[2022-06-26] MEDS: HYDROcodone/acetaminophen 10/325mg tab PO PRN ×3 (01:58→14:42)
[2022-06-26 02:00] VITALS: BP 121/70
[2022-06-26 06:30] VITALS: BP 118/73
[2022-06-26] MEDS: furosemide 40mg/4ml inj IV SCH ×2 (07:49→21:08)
[2022-06-26] MEDS: docusate sod 100mg capsule PO SCH ×2 (07:50→21:07)
[2022-06-26] MEDS: pregabalin 75mg capsule PO SCH ×2 (07:51→21:07)
[2022-06-26] MEDS: guaiFENesin ER 600mg tablet PO SCH ×2 (07:51→21:07)
[2022-06-26] MEDS: azithromycin 250mg tablet PO SCH (07:52)
[2022-06-26] MEDS: acetylcysteine 200 MG/ml 4ml vial PO SCH (07:52)
[2022-06-26] MEDS: levoTHYROXINE 75mcg tablet PO SCH (07:52)
[2022-06-26] MEDS: linezolid 600mg tablet PO SCH ×2 (07:52→21:07)
[2022-06-26] MEDS: pantoprazole 40mg Tablet.DR PO SCH (07:53)
[2022-06-26] MEDS: diltiazem SR 60mg capsule (twice daily) PO SCH ×2 (07:54→21:08)
[2022-06-26] MEDS: cefTAZidime inj. 1 GM in normal saline 100ml IV soln 100 ML IV SCH ×2 (07:54→21:09)
[2022-06-26] MEDS: magnesium hydroxide 30ml (MOM) UD suspension PO PRN (07:58)
[2022-06-26] MEDS: K and/or MAG REPLACEMENT MC SCH ×2 (08:00→20:00)
[2022-06-26] MEDS: ipratropium/albuterol 3ml nebule NEB PRN (09:30)
[2022-06-26 10:00] VITALS: BP 141/66
[2022-06-26 14:00] VITALS: BP 106/53
[2022-06-26 18:00] VITALS: BP 113/66
--- NOTE | 2022-06-26 18:00 | NUR ---
Patient in room PCU 3020. I have received report from Pushpa MASON and had the opportunity to ask questions and assume patient care.
--- NOTE | 2022-06-26 18:22 | NUR ---
report given to Debbie, computer scanner broke all of shift, manually entered medications
[2022-06-26] MEDS: duloxetine 30mg CAPSULE.DR PO SCH (21:07)
[2022-06-26] MEDS: atorvastatin 10mg tablet PO SCH (21:08)
[2022-06-26 22:00] VITALS: BP 124/69
[2022-06-27] MEDS: HYDROcodone/acetaminophen 10/325mg tab PO PRN ×3 (00:05→12:33)
[2022-06-27] MEDS: heparin, porcine 5000 units/ml vial SQ SCH ×2 (00:05→07:33)
[2022-06-27 02:00] VITALS: BP 118/74
--- NOTE | 2022-06-27 06:25 | NUR ---
Problems reprioritized. Patient report given, questions answered & plan of care reviewed with Pushpa MASON.
[2022-06-27 06:30] VITALS: BP 123/52
[2022-06-27] MEDS: cefTAZidime inj. 1 GM in normal saline 100ml IV soln 100 ML IV SCH (07:31)
[2022-06-27] MEDS: linezolid 600mg tablet PO SCH (07:32)
[2022-06-27] MEDS: pregabalin 75mg capsule PO SCH (07:32)
[2022-06-27] MEDS: furosemide 40mg/4ml inj IV SCH (07:32)
[2022-06-27] MEDS: docusate sod 100mg capsule PO SCH (07:32)
[2022-06-27] MEDS: pantoprazole 40mg Tablet.DR PO SCH (07:32)
[2022-06-27] MEDS: guaiFENesin ER 600mg tablet PO SCH (07:32)
[2022-06-27] MEDS: magnesium hydroxide 30ml (MOM) UD suspension PO PRN (07:32)
[2022-06-27] MEDS: diltiazem SR 60mg capsule (twice daily) PO SCH (07:33)
[2022-06-27] MEDS: levoTHYROXINE 75mcg tablet PO SCH (07:33)
[2022-06-27] MEDS: azithromycin 250mg tablet PO SCH (07:33)
[2022-06-27] MEDS: K and/or MAG REPLACEMENT MC SCH (08:00)
[2022-06-27 10:00] VITALS: BP 113/54
[2022-06-27] MEDS ORDERED: CARSR60C PO (13:19)
[2022-06-27] MEDS ORDERED: APIX5TAB3 PO (13:19)
[2022-06-27] MEDS ORDERED: BUDE10.22 INH (13:19)
[2022-06-27] MEDS ORDERED: LINE600T14 PO ×2 (13:19)
[2022-06-27] MEDS ORDERED: apixaban 5mg tablet PO ONE (13:25)
--- NOTE | 2022-06-27 13:27 | NUR ---
O2 Sat at rest on room air:_92__% If below 89%: Recovery O2 Sat at rest on ___LPM:___%:___% via (mask/nasal cannula, etc..) No further documentation is necessary. If O2 Sat did not drop below 89% on room air,ambulate patient on room air. O2 Sat while ambulating on room air:_89__% Recovery O2 Sat while ambulating on _91__LPM:_2__% No further documentation is necessary. If patient does not drop below 89% while ambulating, he/she does not qualify for home O2.
--- NOTE | 2022-06-27 13:52 | NUR ---
Noted pt started on Zyvox. Pt pending discharge at this time per EMR. Written low tyramine nutrition therapy education placed in patient's chart with RD contact information. Will continue to follow. Addendum: 06/27/22 at [address] Amended: Links added.
--- NOTE | 2022-06-27 14:28 | NUR ---
Paged Dr Villagran need to clairify antibiotic in place of zyvox.
[2022-06-27] MEDS ORDERED: CEFD300C3 PO (14:40)
[2022-06-27] MEDS ORDERED: CLIN150C2 PO (14:40)
[2022-06-27] MEDS ORDERED: LACT1CAP26 PO (14:40)
[2022-06-27 15:04] VITALS: BP 119/64
[2022-06-27] MEDS: ipratropium/albuterol 3ml nebule NEB PRN (15:33)
[2022-06-27 16:10] LABS: HEMATOCRIT 33.5 % (35.0-45.0); HEMOGLOBIN 10.8 g/dl (12.0-16.0); MEAN CORPUSCULAR HGB CONC 32.3 g/dL (33.0-36.5); MEAN PLATELET VOLUME 8.1 FL (7.4-10.4); MONOCYTES # (AUTO) 0.6 X10'3 (0-0.9); RED BLOOD COUNT 3.99 X10'6 (4.20-5.60)
[2022-06-27 16:12] LABS: BASOPHILS % (AUTO) 0.4 % (0-1); EOSINOPHILS # (AUTO) 0.2 X10'3 (0-0.9); EOSINOPHILS % (AUTO) 1.2 % (0-6); LYMPHOCYTES # (AUTO) 2.8 X10'3 (1.1-4.8); LYMPHOCYTES % (AUTO) 22.1 % (21-51); MEAN CORPUSCULAR HEMOGLOBIN 27.2 PG (27.0-31.0); MONOCYTES % (AUTO) 4.9 % (2-12); NEUTROPHILS % (AUTO) 71.4 % (42-75); PLATELET COUNT 444 X10'3 (140-440); RED CELL DISTRIBUTION WIDTH 16.6 % (11.5-14.5); WHITE BLOOD COUNT 12.5 X10'3 (4.5-11.0)
[2022-06-27 16:21] LABS: ALANINE AMINOTRANSFERASE 16 U/L (12-78); ALBUMIN 1.8 G/DL (3.4-5.0); ALBUMIN/GLOBULIN RATIO 0.3 (1.1-1.5); ALKALINE PHOSPHATASE 93 IU/L (46-116); ANION GAP 2 (8-16); ASPARTATE AMINO TRANSFERASE 24 U/L (10-37); BILIRUBIN,TOTAL 0.2 MG/DL (0.1-1.0); BLOOD UREA NITROGEN 17 MG/DL (7-18); BUN/CREATININE RATIO 14.2 (6.6-38.0); CALCIUM 8.3 MG/DL (8.5-10.1); CHLORIDE 93 MMOL/L (99-107); GLUCOSE 110 MG/DL (70-104); MAGNESIUM 2.2 MG/DL (1.5-2.4); POTASSIUM 3.2 MMOL/L (3.5-5.1); SODIUM 135 MMOL/L (135-145); TOTAL CARBON DIOXIDE 39.9 MMOL/L (24-32); eGFR 44 ML/MIN
[2022-06-27] MEDS ORDERED: potassium Cl 20 mEq SR tablet PO STA (16:31)
[2022-06-27] MEDS ORDERED: POTA-206 PO (16:32)
--- NOTE | 2022-06-27 19:50 | NUR ---
PT IS READY FOR DISCHARGE AND DAY NURSE INFORMED THAT SHE HAS COMPLETED THE DISCHARGE AND HANDED ME THE DOCUMENTS. PT'S DAUGHTER IS IN THE ROOM TO PICK HER UP. DISCHARGE EDUCATION DONE AND CONFIRMED WITH TEACH BACK METHOD TO MAKE SURE PT AND HER DAUGHTER UNDERSTOOD THE INSTRUCTIONS. PT WHEELED OUT WITH ALL HER BELONGINGS BY THE. Addendum: 06/28/22 at 0418 by Mel Rivera RN PT WHEELED OUT TO THE LOBBY BY THE AID
== END 2022-06-27 20:06 | disposition home health service (06) | DRG 871 ==
LOC: ER 18:12 → ED HOLD 22:58 → PCU 3S 06-20 07:06
PROVIDERS: ADMIT Family Medicine; ATTEND Family Medicine
PROC: B32T1ZZ Computerized Tomography (CT Scan) of Left Pulmonary Artery using Low Osmolar Contrast (ICD-10-PCS; principal; 2022-06-22)
PROC: B3201ZZ Computerized Tomography (CT Scan) of Thoracic Aorta using Low Osmolar Contrast (ICD-10-PCS; 2022-06-22)
PROC: B32S1ZZ Computerized Tomography (CT Scan) of Right Pulmonary Artery using Low Osmolar Contrast (ICD-10-PCS; 2022-06-22)
DX: A41.9 Sepsis, unspecified organism (principal); I50.33 Acute on chronic diastolic (congestive) heart failure; J18.9 Pneumonia, unspecified organism; J96.21 Acute and chronic respiratory failure with hypoxia; N17.0 Acute kidney failure with tubular necrosis; E87.1 Hypo-osmolality and hyponatremia; I13.0 Hypertensive heart and chronic kidney disease with heart failure and stage 1 through stage 4 chronic kidney disease, or unspecified chronic kidney disease; Z68.41 Body mass index [BMI] 40.0-44.9, adult; J44.0 Chronic obstructive pulmonary disease with (acute) lower respiratory infection; L02.211 Cutaneous abscess of abdominal wall; L03.311 Cellulitis of abdominal wall; T17.890A Other foreign object in other parts of respiratory tract causing asphyxiation, initial encounter; Z20.822 Contact with and (suspected) exposure to COVID-19; G89.29 Other chronic pain; E66.01 Morbid (severe) obesity due to excess calories; E87.6 Hypokalemia; E88.09 Other disorders of plasma-protein metabolism, not elsewhere classified; B95.62 Methicillin resistant Staphylococcus aureus infection as the cause of diseases classified elsewhere; E03.9 Hypothyroidism, unspecified; X58.XXXA Exposure to other specified factors, initial encounter; E86.0 Dehydration; F32.A Depression, unspecified; I48.0 Paroxysmal atrial fibrillation; N18.9 Chronic kidney disease, unspecified; Z79.891 Long term (current) use of opiate analgesic; Z86.16 Personal history of COVID-19; Z87.442 Personal history of urinary calculi; Z88.0 Allergy status to penicillin; Z90.49 Acquired absence of other specified parts of digestive tract; Z88.5 Allergy status to narcotic agent; Z88.6 Allergy status to analgesic agent; Z79.899 Other long term (current) drug therapy; Y93.89 Activity, other specified; Y92.89 Other specified places as the place of occurrence of the external cause; Y99.8 Other external cause status; Z79.890 Hormone replacement therapy
CPT/HCPCS: 36415; 71045; 71250; 71275; 74176; 80053; 80061; 81001; 83036; 83605; 83735; 83880; 84100; 84132; 84145; 84443; 84484; 85007; 85025; 85379; 85610; 85730; 87040; 87070; 87077; 87081; 87088; 87186; 87811; 92508; 92616; 93005; 93306; 93308; 93971; 94640; 94664; 94760; 96365; 96367; 96375; 96376; 97116; 97161; 97530; 99285; A4615; A6212; A6260; A6407; A6449; G0378; J0456; J0696; J0713; J1644; J1940; J1956; J2405; J3370; J3490; J7030; J7040; Q9967

== ENCOUNTER 2022-09-19 17:34 | Emergency (ER) | payer OTHER, MEDICARE ==
[~2022-09-19] VITALS: Ht 162.6 cm; Wt 110.0 kg
[~2022-09-19 17:34] MED LIST changes: +APIX5TAB3 PO; +ATOR10TA70 PO; -ATOR40TA PO; +BUDE10.22 INH; -BUDE10.7 INH; +CARSR60C PO; +DICL100G30 TOP; -DICL20GE TOP; -DULO-31 PO; +DULO60CA65 PO; +LACT1CAP26 PO; +LEVO150T61 PO; -LEVO150T8 PO; -OXYC10TA57 PO; +OXYC1TAB15 PO; -PANT-47 PO; +PANT40TA54 PO; +POTA-206 PO; +PREG150C46 PO; +TIZA2CAP7 PO; -TIZA4TAB11 PO
[2022-09-19 18:17] LABS: BASOPHILS # (AUTO) 0.1 X10'3 (0-0.2); BASOPHILS % (AUTO) 0.6 % (0-1); EOSINOPHILS # (AUTO) 0.3 X10'3 (0-0.9); EOSINOPHILS % (AUTO) 2.9 % (0-6); HEMATOCRIT 35.7 % (35.0-45.0); HEMOGLOBIN 11.9 g/dl (12.0-16.0); LYMPHOCYTES # (AUTO) 2.3 X10'3 (1.1-4.8); LYMPHOCYTES % (AUTO) 25.5 % (21-51); MEAN CORPUSCULAR HEMOGLOBIN 29.1 PG (27.0-31.0); MEAN CORPUSCULAR HGB CONC 33.4 g/dL (33.0-36.5); MEAN CORPUSCULAR VOLUME 87.3 FL (78-98); MEAN PLATELET VOLUME 8.1 FL (7.4-10.4); MONOCYTES # (AUTO) 0.8 X10'3 (0-0.9); MONOCYTES % (AUTO) 8.8 % (2-12); NEUTROPHILS # (AUTO) 5.7 X10'3 (1.8-7.7); NEUTROPHILS % (AUTO) 62.2 % (42-75); PLATELET COUNT 304 X10'3 (140-440); RED BLOOD COUNT 4.09 X10'6 (4.20-5.60); RED CELL DISTRIBUTION WIDTH 14.9 % (11.5-14.5); WHITE BLOOD COUNT 9.1 X10'3 (4.5-11.0)
[2022-09-19 18:29] LABS: ALANINE AMINOTRANSFERASE 13 U/L (12-78); ALBUMIN 3.1 G/DL (3.4-5.0); ALBUMIN/GLOBULIN RATIO 0.7 (1.1-1.5); ALKALINE PHOSPHATASE 115 IU/L (46-116); ANION GAP 8 (8-16); ASPARTATE AMINO TRANSFERASE 12 U/L (10-37); BILIRUBIN,TOTAL 0.2 MG/DL (0.1-1.0); BLOOD UREA NITROGEN 13 MG/DL (7-18); BUN/CREATININE RATIO 15.7 (10.0-20.0); CALCIUM 8.7 MG/DL (8.5-10.1); CHLORIDE 104 MMOL/L (99-107); CREATININE 0.83 MG/DL (0.40-0.90); GLUCOSE 117 MG/DL (70-104); POTASSIUM 3.7 MMOL/L (3.5-5.1); SODIUM 141 MMOL/L (135-145); TOTAL CARBON DIOXIDE 28.6 MMOL/L (24-32); TOTAL PROTEIN 7.5 G/DL (6.4-8.2); eGFR 68 ML/MIN
--- NOTE | 2022-09-19 19:36 | NUR ---
Pt FT4 Pt c/o difficulty breathing x1 day, SOB w/ AMB. Pt took a breathing TX and inhaler at home. Pt has a chronic productive cough, sputum green/clark. Pt educated to POC. Pt in agreement. Pending MD sánchez and treatment.
--- NOTE | 2022-09-19 19:39 | NUR ---
I agree with LVNS assessment.
[2022-09-19] MEDS ORDERED: cefpodoxime proxetil 100mg tablet PO ONE (19:55)
[2022-09-19] MEDS ORDERED: DOXYCYCLINE 100MG CAPSULE PO STA (19:55)
[2022-09-19] MEDS ORDERED: CEFP100T7 PO (20:00)
[2022-09-19] MEDS ORDERED: DOXY100C76 PO (20:00)
[2022-09-19] MEDS ORDERED: PRED20TA PO (20:00)
[2022-09-19 20:26] VITALS: BP 124/64
== END 2022-09-19 20:59 | disposition home or self-care (01) ==
LOC: ER 17:35
DX: J18.1 Lobar pneumonia, unspecified organism (principal); J44.9 Chronic obstructive pulmonary disease, unspecified; Z88.0 Allergy status to penicillin; Z88.5 Allergy status to narcotic agent; Z88.6 Allergy status to analgesic agent
CPT/HCPCS: 36415; 71045; 80053; 83605; 83880; 84484; 85025; 87040; 93005; 99285

== ENCOUNTER 2023-02-04 02:23 | Inpatient (IN) | payer OTHER, MEDICARE ==
[~2023-02-04] VITALS: Ht 162.6 cm; Wt 106.6 kg
[~2023-02-04 02:23] MED LIST changes: +CEFP100T7 PO; -DICL100G30 TOP; +DICL100G59 TOP
[2023-02-04 03:30] LABS: EOSINOPHILS # (AUTO) 0.1 X10'3 (0-0.9); MEAN PLATELET VOLUME 8.9 FL (7.4-10.4); RED CELL DISTRIBUTION WIDTH 14.7 % (11.5-14.5)
[2023-02-04 03:32] LABS: BASOPHILS # (AUTO) 0.1 X10'3 (0-0.2); BASOPHILS % (AUTO) 0.6 % (0-1); EOSINOPHILS % (AUTO) 0.5 % (0-6); HEMATOCRIT 39.6 % (35.0-45.0); HEMOGLOBIN 13.5 g/dl (12.0-16.0); LYMPHOCYTES # (AUTO) 1.5 X10'3 (1.1-4.8); LYMPHOCYTES % (AUTO) 10.5 % (21-51); MEAN CORPUSCULAR HEMOGLOBIN 29.8 PG (27.0-31.0); MEAN CORPUSCULAR HGB CONC 34.1 g/dL (33.0-36.5); MEAN CORPUSCULAR VOLUME 87.3 FL (78-98); MONOCYTES # (AUTO) 1.2 X10'3 (0-0.9); MONOCYTES % (AUTO) 8.5 % (2-12); NEUTROPHILS # (AUTO) 11.4 X10'3 (1.8-7.7); NEUTROPHILS % (AUTO) 79.9 % (42-75); PLATELET COUNT 327 X10'3 (140-440); RED BLOOD COUNT 4.53 X10'6 (4.20-5.60); WHITE BLOOD COUNT 14.3 X10'3 (4.5-11.0)
[2023-02-04] MEDS ORDERED: ondansetron/PF 4mg/2ml inj IV ONE ×2 (03:45→06:05)
[2023-02-04 03:49] LABS: ALANINE AMINOTRANSFERASE 11 U/L (12-78); ALBUMIN 2.9 G/DL (3.4-5.0); ALBUMIN/GLOBULIN RATIO 0.5 (1.1-1.5); ALKALINE PHOSPHATASE 95 IU/L (46-116); ANION GAP 7 (8-16); ASPARTATE AMINO TRANSFERASE 18 U/L (10-37); BILIRUBIN,TOTAL 0.6 MG/DL (0.1-1.0); BLOOD UREA NITROGEN 11 MG/DL (7-18); BUN/CREATININE RATIO 10.3 (10.0-20.0); CHLORIDE 96 MMOL/L (99-107); CREATININE 1.07 MG/DL (0.40-0.90); GLUCOSE 146 MG/DL (70-104); LIPASE < 50 U/L (73-393); POTASSIUM 3.6 MMOL/L (3.5-5.1); PRO BRAIN NATRIURETIC PEPTIDE 338 PG/ML (0-125); SODIUM 135 MMOL/L (135-145); TOTAL CARBON DIOXIDE 31.6 MMOL/L (24-32); TOTAL PROTEIN 8.4 G/DL (6.4-8.2); eCRCL 42 ML/MIN; eGFR 51 ML/MIN
[2023-02-04 03:56] LABS: CALCIUM 9.6 MG/DL (8.5-10.1)
[2023-02-04] MEDS ORDERED: iohexol 350MG/ML 100ml bottle IV ONE (04:05)
[2023-02-04] MEDS ORDERED: normal saline 1000ML IV soln IVB ONE (05:20)
[2023-02-04] MEDS ORDERED: ketorolac trometh. 30mg/ml inj. IV ONE (05:20)
[2023-02-04] MEDS ORDERED: CefTRIAXone/D5W-Rocephin 1gm 50 ML IV ONE (05:40)
[2023-02-04] MEDS ORDERED: azithromycin/NS 500mg/250ml 250 ML IV ONE (05:40)
[2023-02-04] MEDS ORDERED: vancomycin/NS 1 GM ADD-VANTAGE 250 ML X 1 DOSE IV ONE (06:00)
[2023-02-04] MEDS ORDERED: proCHLORperazine 10 MG/2 ml inj IV ONE (06:05)
[2023-02-04] MEDS ORDERED: ondansetron/PF 4mg/2ml inj IV PRN (08:10)
[2023-02-04] MEDS ORDERED: morphine 2 MG/ML inj. syringe IV PRN ×2 (08:10)
[2023-02-04] MEDS ORDERED: HYDROcodone/acetaminophen 5mg/325mg tablet PO PRN (08:10)
[2023-02-04] MEDS ORDERED: acetaminophen 325mg tablet PO PRN ×2 (08:10)
[2023-02-04] MEDS ORDERED: mag hydrox/Alum hydrox/simeth 30ml oral suspension PO PRN (08:10)
[2023-02-04] MEDS ORDERED: magnesium hydroxide 30ml (MOM) UD suspension PO PRN (08:10)
[2023-02-04 09:05] LABS: BILIRUBIN,URINE SMALL (Neg); CLARITY,URINE SLIGHTLY CLOUDY (Clear); COLOR,URINE YELLOW (Yellow); GLUCOSE, URINE NEGATIVE (Neg); KETONES,URINE NEGATIVE (Neg); LEUKOCYTE ESTERASE ,URINE NEGATIVE (Neg); NITRITES, URINE NEGATIVE (Neg); OCCULT BLOOD,URINE MODERATE (Neg); PH,URINE 6.5 (4.8-8.0); PROTEIN,URINE TRACE mg/dl (Neg); UROBILINOGEN,URINE 0.2 E.U/dL (0.2-1.0)
[2023-02-04] MEDS: dextrose 5%-1/2 normal saline 1,000 ML IV SCH ×2 (09:16→21:48)
[2023-02-04 09:28] LABS: UA COLLECTION TYPE CLN CATCH MIDSTREAM
[2023-02-04 10:05] LABS: BACTERIA,URINE FEW /HPF (Neg); SQUAMOUS EPITHELIAL CELL,UR MODERATE /LPF (FEW); WBC,URINE 0-4 /HPF (0-4)
[2023-02-04] MEDS ORDERED: PER5325T PO (12:59)
[2023-02-04] MEDS ORDERED: APIX5TAB3 PO (13:01)
[2023-02-04] MEDS ORDERED: BUDE10.7 IH (13:02)
[2023-02-04] MEDS ORDERED: SOTA80TA73 PO (13:02)
[2023-02-04] MEDS ORDERED: ALBU2.5V13 NEB (13:04)
--- NOTE | 2023-02-04 14:54 | NUR ---
RECEIVED REPORT FROM ISABELLA LEDEZMA IN ER
[2023-02-04] MEDS: HYDROcodone/acetaminophen 10/325mg tab PO PRN ×2 (16:05→20:29)
[2023-02-04 18:00] VITALS: BP 109/54; PULSE 85; RESP 18; TEMP 97.7; O2SAT 93
--- NOTE | 2023-02-04 18:00 | NUR ---
Patient in room ORTHO 4022. I have received report from ISABELLA Lewis and had the opportunity to ask questions and assume patient care.
[2023-02-04] MEDS: docusate sod 100mg capsule PO SCH (19:25)
[2023-02-04] MEDS: methylPREDNISolone sod succ/PF 40mg inj. IV SCH (19:25)
[2023-02-04 22:00] VITALS: BP 99/58; PULSE 99; RESP 14; TEMP 97.4; O2SAT 94
[2023-02-05] VITALS (10 sets, daily range): BP systolic 134–141; BP diastolic 69–74; PULSE 79–93; RESP 12–18; TEMP 97.2–98.9; O2SAT 92–95
[2023-02-05] MEDS ORDERED: ipratropium/albuterol 3ml nebule NEB PRN (00:40)
[2023-02-05] MEDS: HYDROcodone/acetaminophen 10/325mg tab PO PRN ×4 (02:06→22:03)
[2023-02-05] MEDS: dextrose 5%-1/2 normal saline 1,000 ML IV SCH ×2 (04:10→08:02)
--- NOTE | 2023-02-05 06:25 | NUR ---
Problems reprioritized. Patient report given, questions answered & plan of care reviewed with DEMETRIO Frias.
--- NOTE | 2023-02-05 06:38 | NUR ---
I have received report from ISABELLA Dunn and had the opportunity to ask questions and assume patient care. No distress at this time.
[2023-02-05 07:41] LABS: BASOPHILS % (AUTO) 0.1 % (0-1); EOSINOPHILS % (AUTO) 0 % (0-6); HEMATOCRIT 34.6 % (35.0-45.0); HEMOGLOBIN 11.7 g/dl (12.0-16.0); LYMPHOCYTES # (AUTO) 0.7 X10'3 (1.1-4.8); LYMPHOCYTES % (AUTO) 6.8 % (21-51); MEAN CORPUSCULAR HEMOGLOBIN 29.7 PG (27.0-31.0); MEAN CORPUSCULAR VOLUME 87.4 FL (78-98); MEAN PLATELET VOLUME 8.9 FL (7.4-10.4); MONOCYTES # (AUTO) 0.2 X10'3 (0-0.9); MONOCYTES % (AUTO) 1.6 % (2-12); NEUTROPHILS # (AUTO) 9.1 X10'3 (1.8-7.7); NEUTROPHILS % (AUTO) 91.5 % (42-75); PLATELET COUNT 308 X10'3 (140-440); RED BLOOD COUNT 3.95 X10'6 (4.20-5.60); RED CELL DISTRIBUTION WIDTH 14.6 % (11.5-14.5)
[2023-02-05] MEDS: docusate sod 100mg capsule PO SCH ×2 (07:50→21:00)
[2023-02-05] MEDS: azithromycin 250mg tablet PO SCH (07:51)
[2023-02-05 07:53] LABS: ALBUMIN 2.5 G/DL (3.4-5.0); ANION GAP 8 (8-16); BLOOD UREA NITROGEN 10 MG/DL (7-18); BUN/CREATININE RATIO 11.4 (10.0-20.0); CALCIUM 8.5 MG/DL (8.5-10.1); CHLORIDE 102 MMOL/L (99-107); CREATININE 0.88 MG/DL (0.40-0.90); GLUCOSE 238 MG/DL (70-104); SODIUM 141 MMOL/L (135-145); TOTAL CARBON DIOXIDE 31.4 MMOL/L (24-32); eCRCL 51 ML/MIN; eGFR 63 ML/MIN
[2023-02-05 07:59] LABS: POTASSIUM 4.6 MMOL/L (3.5-5.1)
[2023-02-05] MEDS: CefTRIAXone/D5W-Rocephin 1gm 50 ML IV SCH (08:02)
[2023-02-05] MEDS: methylPREDNISolone sod succ/PF 40mg inj. IV SCH ×2 (08:03→22:44)
[2023-02-05] MEDS: guaiFENesin ER 600mg tablet PO SCH ×2 (11:07→21:01)
--- NOTE | 2023-02-05 12:19 | NUR ---
Student documentation: Sandy Cabello FISH TENDER instructor for [employer], have reviewed all interventions, assessments performed and documented by González Student Nurse for [employer].
[2023-02-05] MEDS ORDERED: non-formulary drug (Albuterol Sulfate (Proair Hfa) 2 PUFFS) INH PRN (15:00)
[2023-02-05] MEDS ORDERED: oxyCODONE/APAP 5-325mg tablet PO PRN (15:00)
[2023-02-05] MEDS ORDERED: tizanidine 4mg tablet PO PRN (17:00)
--- NOTE | 2023-02-05 18:00 | NUR ---
Received report from AM shift nurse Alysha. Assume care, Pt in room, no s/s of distress at this time.
--- NOTE | 2023-02-05 18:19 | NUR ---
Charting by Sharri ONEILL reviewed by Genaro Mabry RN
--- NOTE | 2023-02-05 18:33 | NUR ---
Reviewed Alysha Vargas RN physical assessment and agree with the documentation.
[2023-02-05] MEDS: Budesonide/Glycopyr/Formoterol (Breztri Aerosphere Inhaler) IH SCH (19:24)
[2023-02-05] MEDS: albuterol 2.5 MG/3 ML nebule NEB SCH (19:25)
--- NOTE | 2023-02-05 19:53 | NUR ---
focused assessment. lungs clear and diminished in upper lobes. productive cough comes and goes usually worse after breathing treatment. states MD is going to send her home tomorrow. pt's IV came out - refused restart, but able to convince to have IV for solumedrol and abx in am. Kathi Armenta attempting to start IV at this time. pt agreeable to SL "as long as it doesn't beep at me all night again." pulses intact, pt independent to bathroom.
[2023-02-05] MEDS: apixaban 5mg tablet PO SCH (21:00)
[2023-02-05] MEDS ORDERED: atorvastatin 10mg tablet PO SCH (21:00)
[2023-02-05] MEDS: sotalol 80mg tablet PO SCH (21:01)
[2023-02-05] MEDS: pregabalin 75mg capsule PO SCH (21:01)
[2023-02-06] MEDS: dextrose 5%-1/2 normal saline 1,000 ML IV SCH ×2 (00:12→08:05)
[2023-02-06 06:00] VITALS: BP 134/69; PULSE 91; RESP 16; TEMP 97.9; O2SAT 93
[2023-02-06 06:14] LABS: BASOPHILS % (AUTO) 0 % (0-1); EOSINOPHILS % (AUTO) 0 % (0-6); HEMATOCRIT 36.3 % (35.0-45.0); HEMOGLOBIN 11.9 g/dl (12.0-16.0); LYMPHOCYTES # (AUTO) 0.7 X10'3 (1.1-4.8); LYMPHOCYTES % (AUTO) 6.4 % (21-51); MEAN CORPUSCULAR HEMOGLOBIN 28.9 PG (27.0-31.0); MEAN CORPUSCULAR HGB CONC 32.9 g/dL (33.0-36.5); MEAN CORPUSCULAR VOLUME 87.9 FL (78-98); MEAN PLATELET VOLUME 8.8 FL (7.4-10.4); MONOCYTES # (AUTO) 0.3 X10'3 (0-0.9); MONOCYTES % (AUTO) 2.9 % (2-12); NEUTROPHILS # (AUTO) 10.4 X10'3 (1.8-7.7); NEUTROPHILS % (AUTO) 90.7 % (42-75); PLATELET COUNT 327 X10'3 (140-440); RED BLOOD COUNT 4.13 X10'6 (4.20-5.60); WHITE BLOOD COUNT 11.5 X10'3 (4.5-11.0)
[2023-02-06 06:17] LABS: ALBUMIN 2.5 G/DL (3.4-5.0); ANION GAP 6 (8-16); BLOOD UREA NITROGEN 10 MG/DL (7-18); CALCIUM 9.4 MG/DL (8.5-10.1); CHLORIDE 104 MMOL/L (99-107); CREATININE 0.83 MG/DL (0.40-0.90); GLUCOSE 195 MG/DL (70-104); SODIUM 143 MMOL/L (135-145); eCRCL 54 ML/MIN; eGFR 68 ML/MIN
--- NOTE | 2023-02-06 06:27 | NUR ---
I have received report from DEMETRIO Galloway and had the opportunity to ask questions and assume patient care. No distress at this time.
[2023-02-06] MEDS ORDERED: levoTHYROXINE 75mcg tablet PO SCH (07:00)
[2023-02-06] MEDS: Budesonide/Glycopyr/Formoterol (Breztri Aerosphere Inhaler) IH SCH (07:21)
[2023-02-06] MEDS: albuterol 2.5 MG/3 ML nebule NEB SCH (07:23)
[2023-02-06 07:31] VITALS: PULSE 72; RESP 18; O2SAT 90
[2023-02-06 07:38] VITALS: PULSE 93; RESP 18
[2023-02-06] MEDS: apixaban 5mg tablet PO SCH (07:48)
[2023-02-06] MEDS: azithromycin 250mg tablet PO SCH (07:48)
[2023-02-06] MEDS: sotalol 80mg tablet PO SCH (07:48)
[2023-02-06] MEDS: guaiFENesin ER 600mg tablet PO SCH (07:49)
[2023-02-06] MEDS: docusate sod 100mg capsule PO SCH (07:49)
[2023-02-06] MEDS: pregabalin 75mg capsule PO SCH (07:49)
[2023-02-06 08:00] VITALS: RESP 18
--- NOTE | 2023-02-06 08:06 | NUR ---
Provided and educated pt on using a I.S devise.
[2023-02-06] MEDS: HYDROcodone/acetaminophen 10/325mg tab PO PRN (08:13)
[2023-02-06] MEDS: methylPREDNISolone sod succ/PF 40mg inj. IV SCH (08:36)
[2023-02-06] MEDS: CefTRIAXone/D5W-Rocephin 1gm 50 ML IV SCH (08:36)
[2023-02-06 10:00] VITALS: BP 144/70; PULSE 82; RESP 16; TEMP 97; O2SAT 97
[2023-02-06] MEDS ORDERED: LEVO750T68 PO (11:57)
[2023-02-06] MEDS ORDERED: PRED10TA23 PO (11:57)
--- NOTE | 2023-02-06 13:00 | NUR ---
CLINICAL RESEARCH SPECIALIST documentation: I have reviewed and agree with all interventions, assessments performed and documented by Altagracia Wilkes LVN.
[2023-02-06] MEDS ORDERED: ondansetron 4mg rapidly disintigrating tab PO PRN (16:35)
--- NOTE | 2023-02-06 17:00 | NUR ---
patient discharged alert and oriented and stable for baseline. educations handed to her in re: to MRSA, and PNA. Documents signed, paperwork provided to pt. IV dc'd of the right forearm. All belongings w/ pt that where on admission. Pt wheeled down to lobby and picked up by granddaughter.
== END 2023-02-06 17:15 | disposition home or self-care (01) | DRG 193 ==
LOC: ER 02:27 → ED HOLD 08:10 → EDBEDREQ 13:53 → ORTHO 4S 15:02
PROVIDERS: ADMIT Internal Medicine; ATTEND Internal Medicine
PROC: B32T1ZZ Computerized Tomography (CT Scan) of Left Pulmonary Artery using Low Osmolar Contrast (ICD-10-PCS; principal; 2023-02-04)
PROC: B3201ZZ Computerized Tomography (CT Scan) of Thoracic Aorta using Low Osmolar Contrast (ICD-10-PCS; 2023-02-04)
PROC: B32S1ZZ Computerized Tomography (CT Scan) of Right Pulmonary Artery using Low Osmolar Contrast (ICD-10-PCS; 2023-02-04)
DX: J15.9 Unspecified bacterial pneumonia (principal); N17.0 Acute kidney failure with tubular necrosis; J44.0 Chronic obstructive pulmonary disease with (acute) lower respiratory infection; I48.20 Chronic atrial fibrillation, unspecified; Z68.41 Body mass index [BMI] 40.0-44.9, adult; Z20.822 Contact with and (suspected) exposure to COVID-19; G47.33 Obstructive sleep apnea (adult) (pediatric); B95.62 Methicillin resistant Staphylococcus aureus infection as the cause of diseases classified elsewhere; E66.01 Morbid (severe) obesity due to excess calories; E78.5 Hyperlipidemia, unspecified; M17.0 Bilateral primary osteoarthritis of knee; E05.00 Thyrotoxicosis with diffuse goiter without thyrotoxic crisis or storm; Z88.0 Allergy status to penicillin; Z88.5 Allergy status to narcotic agent; Z79.899 Other long term (current) drug therapy; Z90.49 Acquired absence of other specified parts of digestive tract; Z87.891 Personal history of nicotine dependence; Z71.6 Tobacco abuse counseling; Z79.890 Hormone replacement therapy; Z86.16 Personal history of COVID-19
CPT/HCPCS: 36415; 71045; 71275; 80048; 80053; 81001; 83036; 83605; 83690; 83880; 84145; 84484; 85025; 87040; 87081; 87811; 93005; 94640; 94760; 99285; G0378; J0456; J0696; J0780; J1885; J2405; J2920; J3370; J3490; J7030; J7042; J7120; Q9967

== ENCOUNTER 2023-08-19 15:27 | Outpatient (CLI) | payer OTHER, MEDICARE ==
[~2023-08-19 15:27] MED LIST changes: +ALBU2.5V13 NEB; -BUDE10.22 INH; +BUDE10.7 IH; -CARSR60C PO; -CEFP100T7 PO; -DULO60CA65 PO; -LACT1CAP26 PO; -OXYC1TAB15 PO; -PANT40TA54 PO; +PER5325T PO; -POTA-206 PO; -PREG150C46 PO; +PREG150C47 PO; +SOTA80TA73 PO
== END 2023-08-19 23:59 | disposition home or self-care (01) ==
LOC: RAD 15:27
PROVIDERS: ATTEND Family Medicine
DX: R13.14 Dysphagia, pharyngoesophageal phase (principal)
CPT/HCPCS: 74230